=== PATIENT | female | born 1995 | race Native Hawaiian/Other Pacific Islander ===

== ENCOUNTER 2021-09-24 22:06 | Emergency (ER) | payer MEDICARE ==
[2021-09-24 23:07] VITALS: BP 124/72
[2021-09-25] MEDS ORDERED: traMADol 50 MG TAB PO ONE (03:17)
[2021-09-25] MEDS ORDERED: CLINDAMYCIN 300 MG CAP PO ONE ×2 (03:17→04:00)
--- NOTE | 2021-09-25 03:23 | Emergency Department Report ---
ED General Adult HPI - General Chief complaint: Skin/Abscess/Foreign Body Stated complaint: ABCESS UNDER RIGHT BREAST Time Seen by Provider: 09/25/21 02:50 Source: EMS Mode of arrival: Ambulatory Limitations: No Limitations - History of Present Illness Initial comments: Patient a 25-year-old female with history of diabetes type 2 controlled with metformin p.o. daily, bipolar disorder, and 2-week history of right breast abscess with spontaneous drainage tonight. Patient denies fevers cheers chills or rigors. There is no nausea no vomiting no malaise. Patient lives with family member and roommate, patient is followed by primary care and psychiatry. Patient states she called ambulance because of right breast pain rated at 4/10. However pain is resolved after spontaneous drainage of right breast abscess. Patient states symptoms are exacerbated by palpation. Symptoms are relieved by nothing tried.. - Related Data Previous Rx's Medication Instructions Recorded Last Taken Type Clindamycin [Clindamycin CAP] 300 mg PO Q8H 7 Days #21 cap 09/25/21 Unknown Rx Ibuprofen [Motrin 800 MG tab] 800 mg PO Q8HR PRN #30 tablet 09/25/21 Unknown Rx Allergies Allergy/AdvReac Type Severity Reaction Status Date / Time Penicillins Allergy Unknown Verified 09/24/21 23:07 ED Review of Systems ROS: Stated complaint: ABCESS UNDER RIGHT BREAST Other details as noted in HPI Constitutional: denies: chills, fever Eyes: denies: eye pain, eye discharge, vision change ENT: denies: ear pain, throat pain Respiratory: denies: cough, shortness of breath, wheezing Cardiovascular: denies: chest pain, palpitations Endocrine: no symptoms reported Gastrointestinal: denies: abdominal pain, nausea, diarrhea Genitourinary: denies: urgency, dysuria, discharge Musculoskeletal: denies: back pain, joint swelling, arthralgia Skin: other (Right breast abscess) Neurological: denies: headache, weakness, paresthesias Psychiatric: denies: anxiety, depression Hematological/Lymphatic: denies: easy bleeding, easy bruising ED Past Medical Hx - Past Medical History Hx Diabetes: Yes Additional medical history: Bipolar Disorder - Medications Home Medications: Home Medications Medication Instructions Recorded Confirmed Last Taken Type Clindamycin [Clindamycin CAP] 300 mg PO Q8H 7 Days #21 cap 09/25/21 Unknown Rx Ibuprofen [Motrin 800 MG tab] 800 mg PO Q8HR PRN #30 tablet 09/25/21 Unknown Rx ED Physical Exam - General Limitations: No Limitations General appearance: alert, in no apparent distress - Head Head exam: Present: normocephalic, normal inspection - Eye Eye exam: Present: EOMI Pupils: Present: normal accommodation - ENT ENT exam: Present: mucous membranes moist - Neck Neck exam: Present: normal inspection, full ROM. Absent: tenderness - Respiratory Respiratory exam: Present: normal lung sounds bilaterally, other (Right breast abscess 1 x 2 cm moderate brownish drainage no fever mild erythema there is no axillary tenderness, no axillary lymph, bilateral nipple inversion no bleeding. ). Absent: respiratory distress - Cardiovascular Cardiovascular Exam: Present: regular rate, normal rhythm, normal heart sounds. Absent: systolic murmur, diastolic murmur, rubs, gallop - GI/Abdominal GI/Abdominal exam: Present: soft, normal bowel sounds. Absent: distended, tenderness - Rectal Rectal exam: Present: deferred - Extremities Exam Extremities exam: Present: normal inspection, full ROM. Absent: tenderness - Back Exam Back exam: Present: normal inspection, full ROM. Absent: tenderness - Neurological Exam Neurological exam: Present: alert, oriented X3, CN II-XII intact - Expanded Neurological Exam Expanded Patient oriented to: Present: person, place, time Speech: Present: fluid speech Best Eye Response ([place]): (4) open spontaneously Best Motor Response ([place]): (6) obeys commands Best Verbal Response ([place]): (5) oriented [place] Total: 15 - Psychiatric Psychiatric exam: Present: normal affect, normal mood - Skin Skin exam: Present: warm, erythema (1 x 3 area of fluctuance right breast at 3:00 there is bilateral nipple inversion however no axillary tenderness no bloody drainage no other mass palpated) ED Course Vital Signs 09/24/21 22:07 Temperature 97.9 F Pulse Rate 94 H Respiratory 18 Rate Blood Pressure 124/72 [Right] O2 Sat by Pulse 99 Oximetry ED Medical Decision Making - Medical Decision Making This is a right breast abscess draining. advises pain resolved with spontaneous eruption. Exam with flight manager notes normal 3 cm draining abscess brownish discharge to manual expression. There is no fever no axillary tenderness. No family history or patient history of CVA. There is no fevers no chills no rigors. Patient is tolerating p.o. intake without nausea vomiting. Plan DC to home with prescriptions. Wash with soap and water warm compresses , wound care as directed. Follow-up with breast surgery in 1 to 2 days. Patient verbalizes agreement and understanding with discharge plan. Patient will be DC'd to home via family member and POV. Patient verbalized agreement and understanding with discharge plan. Patient is currently A/O x3 with no acute distress . Critical care attestation.: If time is entered above; I have spent that time in minutes in the direct care of this critically ill patient, excluding procedure time. ED Disposition Clinical Impression: Abscess of right breast Disposition: HOME / SELF CARE / HOMELESS Is pt being admited?: No Does the pt Need Aspirin: No Condition: Stable Instructions: Skin Abscess Additional Instructions: Take medications as prescribed, wash with soap and water and dressing changes as directed. Follow-up with breast surgery call tomorrow to confirm appointment. Return to emergency should symptoms worsen. Prescriptions: Clindamycin [Clindamycin CAP] 300 mg PO Q8H 7 Days #21 cap Ibuprofen [Motrin 800 MG tab] 800 mg PO Q8HR PRN #30 tablet PRN Reason: pain Referrals: AYO TSE MD [Staff Physician] - 24 Hours Forms: Work/School Release Form(ED) Time of Disposition: 03:31
== END 2021-09-25 03:58 | disposition home or self-care (01) ==
LOC: ED 22:06
DX: N61.1 Abscess of the breast and nipple (principal); J45.909 Unspecified asthma, uncomplicated; Z88.0 Allergy status to penicillin
CPT/HCPCS: 99283